=== PATIENT | female | born 1980 | race Caucasian/White ===

== ENCOUNTER 2016-08-16 09:54 | Emergency (ER) | payer BC ==
[2016-08-16 09:58] VITALS: BP 147/97; PULSE 88; TEMP 98.7; BMI 38.2
--- NOTE | 2016-08-16 09:59 | PDOC ---
History of Present Illness - General Chief Complaint: Pain, Acute Stated Complaint: RIGHT ABD PAIN Time Seen by Provider: 08/16/16 09:58 - History of Present Illness Initial Comments: 08/16/16 10:18 Complaint: Right upper quadrant pain History of present illness: Patient awoke at 2 AM with severe colicky right upper quadrant pain which lasted several hours, but is now starting to improve. There was mild nausea, no vomiting, normal bowel movement last night. She had no fatty food but did have a glass of wine last night, which is unusual for her. Review of systems: No fever/chills, headache, URI symptoms, sore throat, cough, chest pain, shortness of breath, lower quadrant abdominal pain, vaginal bleeding or discharge, urinary tract symptoms, diarrhea, constipation, melena, bloody stool, or hematemesis. No visual or focal neurologic symptoms or unsteadiness of gait. All other systems reviewed and found to be negative Past medical history: Gallstones with cholecystitis approximately 5 years ago during , occasional mild attacks since then, may be one half dozen or so, but nothing as severe as today. Childbirth with 3 healthy children, the youngest one by approximately 1-1/2 years ago. Obesity. Breast reduction. No other significant medical problems including cardiac, pulmonary, GI, and no hepatitis or liver disease. She is on Depo Provera and does not get menses. Social history: Active, stable home and family, no tobacco or nonprescription drugs. Occasional social alcohol. As noted above. Family history: No family history of early coronary artery disease, metabolic disease including diabetes, cancer, GI disease including hepatic disease. Physical exam: Alert and oriented 3, well-developed well-nourished, no acute distress, cooperative Afebrile, vital signs are normal No pallor or icterus. PERRLA, fundi benign, conjunctivae clear, ENT clear Neck supple without bruit mass or nodes Lungs clear with equal breath sounds bilaterally CV regular without murmur rub or gallop pulses full and symmetric no JVD or edema Abdomen nondistended, normal bowel sounds. Soft without mass or organomegaly. There is moderate tenderness to deep palpation in the right upper quadrant, localized over the gallbladder, with a positive Parra sign. No lower quadrant tenderness whatsoever and no CVAT Neurological intact Extremities no CCE Skin clear, no rash, adequate turgor and mucous membranes Impression: Known gallstones, prior biliary colic, infrequent, exacerbation today. Plan: CBC and chemistries, ultrasound, further medical therapy if indicated, surgery referral to consider elective cholecystectomy once 08/16/16 11:08 Past History - Past Medical History Allergies/Adverse Reactions: Allergies Allergy/AdvReac Type Severity Reaction Status Date / Time No Known Allergies Allergy Verified 09/02/11 21:45 Other medical history: GALL STONES - Psycho/Social/Smoking Cessation Hx Anxiety: No Suicidal Ideation: No Smoking Status: No Smoking History: Never smoked Number of Cigarettes Smoked Daily: 0 Hx Alcohol Use: No Drug/Substance Use Hx: No Substance Use Type: Alcohol *Physical Exam - Vital Signs Last Vital Signs Temp Pulse Resp BP Pulse Ox 98.7 F 88 16 147/97 100 08/16/16 09:55 08/16/16 09:55 08/16/16 09:55 08/16/16 09:55 08/16/16 09:55 ED Treatment Course - LABORATORY CBC & Chemistry Diagram: 08/16/16 10:41 08/16/16 10:41 Medical Decision Making - Medical Decision Making 08/16/16 11:31 Laboratory work without significant abnormalities. White count is normal. Liver enzymes are normal. There is a mild elevation of glucose of 161. Patient made aware and will discuss this with her primary physician Ultrasound shows gallstones, with gallbladder similar in appearance to prior study in 2011. Bile ducts were normal intrahepatic ducts are normal no sign of complication Patient has appointment to see Dr. Howell for follow up. Also to be referred to a surgeon for consultation. Pain has subsided and she is fully ambulatory and in no significant distress upon discharge with her to follow up as directed *DC/Admit/Observation/Transfer Diagnosis at time of Disposition: Biliary colic - Discharge Dispostion Disposition: HOME Condition at time of disposition: Improved Admit: No - Referrals Referrals: John Ruiz MD [Staff Physician] - - Patient Instructions Printed Discharge Instructions: DI for Gallstones Additional Instructions: Return to ER if pain worsens or associated symptoms develop such as fever/chills , nausea/vomiting, diarrhea, or diffuse body aches Otherwise see surgery physician for consultation and advice regarding removal of gallbladder.
[2016-08-16 10:24] LABS: URINE APPEARANCE Clear; URINE BILIRUBIN Negative (NEGATIVE); URINE BLOOD Negative (NEGATIVE); URINE GLUCOSE (UA) Negative (NEGATIVE); URINE KETONE Negative (NEGATIVE); URINE LEUK ESTERASE Negative (NEGATIVE); URINE NITRITE Negative (NEGATIVE); URINE PROTEIN Negative (NEGATIVE); URINE UROBILINOGEN 0.2 E.U/dl (0.2-1.0)
[2016-08-16 10:25] LABS: URINE COLOR YELLOW
[2016-08-16 11:00] LABS: BASOPHIL 0.7 % (0-2.0); EOSINOPHIL 0.8 % (0-4.5); MCH 29.9 pg (25.7-33.7); MCHC 34.5 g/dl (32.0-36.0); MEAN CELL VOLUME 86.5 fl (80-96); MEAN PLT VOLUME 8.5 fl (7.5-11.1); NEUTROPHILS 73.8 % (42.8-82.8); PLATELET COUNT 314 K/MM3 (134-434); RDW 13.3 % (11.6-15.6); WHITE BLOOD COUNT 8.7 K/mm3 (4.0-10.8)
[2016-08-16 11:08] LABS: ALBUMIN 4.2 g/dl (3.5-5.0); ALK PHOS 52 U/L (32-92); ANION GAP 7 (8-16); BILIRUBIN,TOTAL 0.5 mg/dl (0.2-1.0); CALCIUM 9.3 mg/dl (8.4-10.2); CO2 26 mmol/L (22-28); CREATININE 0.7 mg/dl (0.6-1.3); GLUCOSE,RANDOM 161 mg/dl (74-106); SGOT/AST 19 U/L (10-42); SGPT/ALT 18 U/L (10-40); TOT PROT 7.5 g/dl (6.4-8.3)
== END 2016-08-16 11:36 | disposition home or self-care (01) ==
LOC: FER 09:54
DX: K80.50 Calculus of bile duct without cholangitis or cholecystitis without obstruction (principal)
CPT/HCPCS: 36415; 76705-TC; 80053; 81003; 84703; 85025; 99282-25

== ENCOUNTER 2017-06-15 08:29 | Emergency (ER) | payer BC ==
[2017-06-15] MEDS ORDERED: SODIUM CHLORIDE 1,000 ML IV STA (08:34)
[2017-06-15] MEDS ORDERED: ONDANSETRON 4 MG/2 ML VIAL IVPUSH ONE (08:34)
[2017-06-15] MEDS ORDERED: morphine SULFATE 4 MG/ML VIAL IVPUSH ONE (08:34)
--- NOTE | 2017-06-15 08:40 | PDOC ---
History of Present Illness - General Chief Complaint: Pain Stated Complaint: RUQ ABD PAIN Time Seen by Provider: 06/15/17 08:30 History Source: Patient Exam Limitations: No Limitations - History of Present Illness Travel History: No Initial Comments: 06/15/17 08:36 37 y/o female with RUQ pain since 330 am. Patient with history of gallbladder issues, last attack 2 months ago. Advised to take gallbladder out, but was not ready. Denies fever or chills. no dysuria. Pain radiates to the pack. Vomited today. States this attack to be the worst ever. Did not eat or do anything to have this come on, states she has been very careful. Timing/Duration: reports: constant Quality: reports: moderate Abdominal Pain Onset Location: reports: RUQ Pain Radiation: reports: no radiation Past History - Past Medical History Allergies/Adverse Reactions: Allergies Allergy/AdvReac Type Severity Reaction Status Date / Time No Known Allergies Allergy Verified 06/15/17 08:31 Home Medications: Ambulatory Orders Medroxyprogesterone Acetate [Depo-Provera] 150 mg IM ASDIR 06/15/17 - Suicide/Smoking/Psychosocial Hx Smoking Status: No Smoking History: Never smoked Number of Cigarettes Smoked Daily: 0 Hx Alcohol Use: No Drug/Substance Use Hx: No Substance Use Type: Alcohol Review of Systems - Review of Systems Able to Perform ROS?: Yes Is the patient limited [place] proficient: No Constitutional: No: Chills, Fever Respiratory: No: Cough, Shortness of Breath Cardiac (ROS): No: Chest Pain ABD/GI: Yes: Nausea, Vomiting : No: Dysuria Musculoskeletal: Yes: Back Pain All Other Systems: Reviewed and Negative *Physical Exam - Physical Exam General Appearance: Yes: Nourished, Appropriately Dressed, Mild Distress HEENT: positive: EOMI, MESSI, Normal ENT Inspection, Normal Voice Neck: positive: Trachea midline, Normal Thyroid, Supple. negative: Tender, Rigid Respiratory/Chest: positive: Lungs Clear, Normal Breath Sounds. negative: Chest Tender, Respiratory Distress Cardiovascular: positive: Regular Rhythm, Regular Rate, S1, S2. negative: Edema , JVD, Murmur Vascular Pulses: Femoral (R): 4+, Femoral (L): 4+, Carotid (R): 4+, Carotid (L) : 4+, Dorsalis-Pedis (R): 4+, Doralis-Pedis (L): 4+ Gastrointestinal/Abdominal: positive: Normal Bowel Sounds, Tender (RUQ tenderness, mild mid epigastric tenderness, neg RLQ, LLQ tenderness, neg LUQ tenderness), Flat, Soft. negative: Organomegaly, Pulsatile Mass, Guarding, Rebound Lymphatic: negative: Adenopathy, Tenderness, Other Musculoskeletal: positive: Normal Inspection. negative: CVA Tenderness Extremity: positive: Normal Capillary Refill, Normal Inspection, Normal Range of Motion Integumentary: positive: Normal Color, Dry, Warm Neurologic: positive: computer processing scheduler II-XII NML intact, Fully Oriented, Alert, Normal Mood/ Affect, Normal Response, Motor Strength 08/23 ED Treatment Course - LABORATORY CBC & Chemistry Diagram: 06/15/17 09:22 06/15/17 09:22 - RADIOLOGY Radiology Studies Ordered: Category Date Time Status GALLBLADDER US [US] Stat Ultrasound 06/15/17 08:34 Ordered Progress Note - Progress Note Progress Note: Pt with RUQ tenderness, will obtain US, labs and pain control and r/o cholecyctitis. Pt is in agreement with plan. Pt is feeling much better, pain has resolved. Motrin, rest, fluids Follow up with Surgeon as outpatient for gallbladder removal If worsen return to ER Pt is in agreement with plan. US gallbladder shows Cholelithiasis, no acute cholecystitis *DC/Admit/Observation/Transfer Diagnosis at time of Disposition: Cholelithiasis Qualifiers: Cholelithiasis location: gallbladder Cholecystitis presence: without cholecystitis Biliary obstruction: without biliary obstruction Qualified Code(s) : K80.20 - Calculus of gallbladder without cholecystitis without obstruction - Discharge Dispostion Disposition: HOME Condition at time of disposition: Good Admit: No - Referrals Referrals: Milo Siegel MD [Staff Physician] - - Patient Instructions Printed Discharge Instructions: DI for Gallstones Additional Instructions: Fluids, rest [place] diet Motrin for pain Follow up with Surgeon If worsen return to ER - Post Discharge Activity
[2017-06-15 08:50] VITALS: BMI 33.3
[2017-06-15] MEDS ORDERED: PANTOPRAZOLE SODIUM 40 MG VIAL IVPUSH ONE (08:52)
[2017-06-15] MEDS ORDERED: PANTOPRAZOLE SODIUM 40 MG VIAL ONE (08:54)
[2017-06-15] MEDS ORDERED: morphine SULFATE 4 MG/ML VIAL ONE (08:54)
[2017-06-15] MEDS ORDERED: ONDANSETRON 4 MG/2 ML VIAL ONE (08:54)
[2017-06-15 09:27] LABS: EOS % 0.7 % (0-4.5); HEMOGLOBIN 13.5 GM/dl (10.7-15.3); LYMPH % 16.8 % (8-40); MCH 29.4 pg (25.7-33.7); MCHC 33.8 g/dl (32.0-36.0); MEAN CELL VOLUME 87.1 fl (80-96); MONO % 5.1 % (3.8-10.2); NEUT % 76.4 % (42.8-82.8); PLATELET COUNT 300 K/MM3 (134-434); RBC 4.59 M/mm3 (3.60-5.2); RDW 12.9 % (11.6-15.6); WHITE BLOOD COUNT 8.1 K/mm3 (4.0-10.8)
[2017-06-15 09:33] LABS: URINE APPEARANCE Clear; URINE BILIRUBIN Negative (NEGATIVE); URINE GLUCOSE (UA) Negative (NEGATIVE); URINE KETONE Negative (NEGATIVE); URINE LEUK ESTERASE Negative (NEGATIVE); URINE NITRITE Negative (NEGATIVE); URINE PROTEIN Trace (NEGATIVE); URINE UROBILINOGEN 0.2 (0.2-1.0)
[2017-06-15 09:36] LABS: URINE BLOOD Trace-intact (NEGATIVE); URINE COLOR YELLOW
[2017-06-15 09:38] LABS: HCG,QUALITATIVE URINE NEGATIVE
[2017-06-15 09:45] LABS: ALK PHOS 46 U/L (32-92); ANION GAP 5 (8-16); BLOOD UREA NITROGEN 9 mg/dl (7-18); CALCIUM 9.1 mg/dl (8.4-10.2); CHLORIDE 105 mmol/L (98-107); CO2 24 mmol/L (22-28); CREATININE 0.9 mg/dl (0.6-1.3); GLUCOSE,RANDOM 148 mg/dl (74-106); POTASSIUM 4.1 mmol/L (3.5-5.1); SGOT/AST 21 U/L (10-42); SGPT/ALT 20 U/L (10-40); SODIUM 134 mmol/L (136-145); TOT PROT 7.1 g/dl (6.4-8.3)
[2017-06-15 10:18] LABS: BILIRUBIN,TOTAL < 0.5 mg/dl (0.2-1.0)
[2017-06-15 11:07] VITALS: TEMP 98.3
[2017-06-15 11:20] LABS: EPI CELLS FEW /HPF; URINE BACTERIA NONE SEEN /hpf (NEGATIVE); URINE WBC 0-1 (0-5)
[2017-06-15 11:50] VITALS: BP 114/68; PULSE 67
== END 2017-06-15 11:49 | disposition home or self-care (01) ==
LOC: FER 08:29
PROC: 3E033NZ Introduction of Analgesics, Hypnotics, Sedatives into Peripheral Vein, Percutaneous Approach (ICD-10-PCS; principal; 2017-06-15)
PROC: 3E033GC Introduction of Other Therapeutic Substance into Peripheral Vein, Percutaneous Approach (ICD-10-PCS; 2017-06-15)
PROC: 3E0337Z Introduction of Electrolytic and Water Balance Substance into Peripheral Vein, Percutaneous Approach (ICD-10-PCS; 2017-06-15)
DX: K80.20 Calculus of gallbladder without cholecystitis without obstruction (principal)
CPT/HCPCS: 36415; 76705-TC; 80053; 81003; 81015; 83690; 84703; 85025; 99283-25